=== PATIENT | female | born 1980 | race Caucasian/White ===

== ENCOUNTER → 2017-07-11 | Outpatient (CLI) | payer BC ==
[2017-07-11 12:38] LABS: ALANINE AMINOTRANSFERASE 23 U/L (9-52); ALBUMIN 4.2 g/dL (3.5-5.0); ALKALINE PHOSPHATASE 49 U/L (38-126); ANION GAP 10 (5-19); ASPARTATE AMINO TRANSFERASE 29 U/L (14-36); BILIRUBIN,DIRECT 0.4 mg/dL (0.0-0.4); BILIRUBIN,TOTAL 0.4 mg/dL (0.2-1.3); BLOOD UREA NITROGEN 10 mg/dL (7-20); CALCIUM 9.4 mg/dL (8.4-10.2); CARBON DIOXIDE 26 mmol/L (22-30); CHLORIDE 107 mmol/L (98-107); GLUCOSE 111 mg/dL (75-110); POTASSIUM 4.7 mmol/L (3.6-5.0); SODIUM 142.6 mmol/L (137-145); TOTAL PROTEIN 6.8 g/dL (6.3-8.2)
[2017-07-12 14:42] LABS: ANTINUCLEAR ANTIBODIES Positive (Negative); RNP AB <0.2 AI (0.0-0.9); SJOGREN'S ANTI-SS-B AB <0.2 AI (0.0-0.9); SJOGREN'S SS-A ANTIBODY <0.2 AI (0.0-0.9); SMITH AB ANA <0.2 AI (0.0-0.9)
[2017-07-12 15:02] LABS: DNA DOUBLE STRAND ANTIBODY ANA 11 IU/mL (0-9)
== END ==
LOC: OD 11:25
PROVIDERS: ATTEND Family Medicine
DX: G62.89 Other specified polyneuropathies (principal); E03.9 Hypothyroidism, unspecified; E10.9 Type 1 diabetes mellitus without complications
CPT/HCPCS: 36415; 80053; 82607; 82746; 84443; 86038

== ENCOUNTER 2017-09-08 21:24 | Emergency (ER) | payer BC ==
[2017-09-08 21:39] VITALS: BP 149/86
--- NOTE | 2017-09-08 21:47 | ER Document Report ---
HPI - HPI Pain Level: 5 - CONSTITUTIONAL Constitutional: DENIES: Fever, Chills - EENT EENT: DENIES: Sore Throat, Ear Pain, Eye problems - NEURO Neurology: DENIES: Headache, Weakness, Vision blurred, Dizzinesss / Vertigo - CARDIOVASCULAR Cardiovascular: DENIES: Chest pain - RESPIRATORY Respiratory: DENIES: Trouble Breathing, Coughing - GASTROINTESTINAL Gastrointestinal: DENIES: Abdominal Pain, Black / Bloody Stools - URINARY Urinary: DENIES: Dysuria, Urgency, Frequency - REPRODUCTIVE Reproductive: REPORTS: : - MUSCULOSKELETAL Musculoskeletal: REPORTS: Extremity pain - L knee, L arm / numbness hands Past Medical History - Social History Smoking Status: Unknown if Ever Smoked Family History: Reviewed & Not Pertinent Patient has suicidal ideation: No Patient has homicidal ideation: No Pulmonary Medical History: Reports: Hx Asthma - chilhood, Hx Bronchitis, Hx Tuberculosis Neurological Medical History: Reports: Hx Seizures - Last seizure 1 month ago Endocrine Medical History: Reports: Hx Diabetes Mellitus Type 1, Hx Hyperthyroidism Renal/ Medical History: Denies: Hx Peritoneal Dialysis Psychiatric Medical History: Denies: Hx Depression Traumatic Medical History: Reports: Hx Fractures Past Surgical History: Denies: Hx Pacemaker - Immunizations Hx Diphtheria, Pertussis, Tetanus Vaccination: No - 08/10/12 Vertical Provider Document - INFECTION CONTROL TRAVEL OUTSIDE OF THE [place] IN LAST 30 DAYS: No Course - Vital Signs Vital signs: Temp Pulse Resp BP Pulse Ox 98.5 F 90 16 149/86 H 98 09/08/17 21:37 09/08/17 21:37 09/08/17 21:37 09/08/17 21:37 09/08/17 21:37
--- NOTE | 2017-09-08 21:59 | ER Document Report ---
ED General - General Chief Complaint: Hand Pain Stated Complaint: LEFT KNEE PAIN Time Seen by Provider: 09/08/17 21:46 TRAVEL OUTSIDE OF THE [place]. IN LAST 30 DAYS: No - HPI Notes: 37-year-old female who presents with several complaints. Patient describes several months worth of pain and burning in her hands as well as her feet and legs and arms, radiates up into her shoulders. She also indicates some pain and swelling in her left knee over the last week or 2. When questioned at length, she indicates that she is been evaluated by multiple specialists for this including her primary care physician, a neurologist and a drop wirer. She is scheduled to have an EMG done in sometime the next week or 2. She denies any rashes, no weakness. No history of Lyme disease. Gradual onset. No other modifying factors, no other associated symptoms, no other provocative or palliative factors. When asked her why she presents to the emergency department tonight she states her is concerned because she is in so much pain all the time and wants her to get checked out to see if there is anything that we can do. She really has not had any acute or abrupt change in her underlying condition. - Related Data Allergies/Adverse Reactions: No Known Allergies Allergy (Verified 04/21/13 17:25) Past Medical History - Social History Smoking Status: Never Smoker Family History: Reviewed & Not Pertinent Patient has suicidal ideation: No Patient has homicidal ideation: No Pulmonary Medical History: Reports: Hx Asthma - chilhood, Hx Bronchitis, Hx Tuberculosis Neurological Medical History: Reports: Hx Seizures - Last seizure 1 month ago Endocrine Medical History: Reports: Hx Diabetes Mellitus Type 1, Hx Hyperthyroidism Renal/ Medical History: Denies: Hx Peritoneal Dialysis Psychiatric Medical History: Denies: Hx Depression Traumatic Medical History: Reports: Hx Fractures Past Surgical History: Denies: Hx Pacemaker - Immunizations Hx Diphtheria, Pertussis, Tetanus Vaccination: No - 08/10/12 Review of Systems - Review of Systems Notes: Review of systems as in the history of present illness, otherwise negative. Physical Exam - Vital signs Vitals: Temp Pulse Resp BP Pulse Ox 98.5 F 90 16 149/86 H 98 09/08/17 21:37 09/08/17 21:37 09/08/17 21:37 09/08/17 21:37 09/08/17 21:37 - Notes Notes: General: Well developed . HEENT: Normocephalic, atraumatic. Pupils equal round reactive to light. No JVD. Chest: No trauma. Respiratory: Good air exchange, normal excursion. Cardiac: Regular rhythm. No murmurs or gallops. Abdomen: Soft, benign. Nondistended. Nontender. Back: No asymmetry or gross abnormality. Motor: Grossly normal power and tone. Neurologic: Alert, nonfocal. Cranial nerves II-12 are intact. Sensation diminished in the upper extremities in a stocking glove distribution as well as in lower extremities. Vascular: Well perfused. Normal peripheral pulses. Skin: No petechiae or purpura. Extremities: No erythema, warmth or asymmetry, no edema. Course - Re-evaluation Re-evalutation: 09/08/17 22:09 37-year-old female with the after mentioned symptoms. After extensive discussion with her, she has had an extended workup by multiple specialists including a conference of rheumatologic workup. At this point, I do not see any ED testing is going to be helpful to her, no imaging that would be mandated in an emergent fashion. She really indicates that she does not wish to have any analgesics to "temporarily" fix things. She is more looking for a solution to her illness and a diagnosis. I have cautioned her that she must follow-up closely with her primary care physician and specialists, she will return if worsening. She is declined my offer for analgesics. - Vital Signs Vital signs: Temp Pulse Resp BP Pulse Ox 98.5 F 90 16 149/86 H 98 09/08/17 21:37 09/08/17 21:37 09/08/17 21:37 09/08/17 21:37 09/08/17 21:37 Discharge - Discharge Clinical Impression: Neuropathy Condition: Good Disposition: HOME, SELF-CARE Instructions: Neuropathy ([facility], [facility]) Additional Instructions: Contact your primary care doctor in the morning.
== END 2017-09-08 22:15 | disposition home or self-care (01) ==
LOC: ER 21:24
DX: E10.40 Type 1 diabetes mellitus with diabetic neuropathy, unspecified (principal); M25.562 Pain in left knee; M79.89 Other specified soft tissue disorders; M79.641 Pain in right hand; M79.642 Pain in left hand; M79.604 Pain in right leg; M79.605 Pain in left leg; M79.601 Pain in right arm; M79.602 Pain in left arm; J45.909 Unspecified asthma, uncomplicated
CPT/HCPCS: 99283

== ENCOUNTER 2017-09-20 21:48 | Emergency (ER) | payer BC ==
--- NOTE | 2017-09-20 23:31 | ER Document Report ---
HPI - HPI Patient complains to provider of: Left knee pain Onset: Other - 5 days Onset/Duration: Persistent Quality of pain: Achy Pain Level: 5 Context: Patient presents complaining of left knee pain for the past 5 days. Patient states she was walking, accidentally twisted her knee and felt a pop. Patient complains of pain with ambulation. Associated Symptoms: Other - Left knee pain Exacerbated by: Movement, Walking Relieved by: Denies Similar symptoms previously: No Recently seen / treated by doctor: Yes - ROS ROS below otherwise negative: Yes Systems Reviewed and Negative: Yes All other systems reviewed and negative - CONSTITUTIONAL Constitutional: DENIES: Fever, Chills - CARDIOVASCULAR Cardiovascular: DENIES: Chest pain - RESPIRATORY Respiratory: DENIES: Trouble Breathing, Coughing - MUSCULOSKELETAL Musculoskeletal: REPORTS: Extremity pain, Swelling - DERM Skin Color: Normal Skin Problems: None Past Medical History - General Information source: Patient - Social History Smoking Status: Never Smoker Chew tobacco use (# tins/day): No Frequency of alcohol use: Rare Drug Abuse: None 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 Family History: Reviewed & Not Pertinent Patient has suicidal ideation: No Patient has homicidal ideation: No Pulmonary Medical History: Reports: Hx Asthma - chilhood, Hx Bronchitis, Hx Tuberculosis Neurological Medical History: Reports: Hx Seizures - Last seizure 1 month ago Endocrine Medical History: Reports: Hx Diabetes Mellitus Type 1, Hx Hypothyroidism Renal/ Medical History: Denies: Hx Peritoneal Dialysis Psychiatric Medical History: Denies: Hx Depression Traumatic Medical History: Reports: Hx Fractures Surgical Hx: Negative Past Surgical History: Denies: Hx Pacemaker - Immunizations Hx Diphtheria, Pertussis, Tetanus Vaccination: No - 08/10/12 Vertical Provider Document - CONSTITUTIONAL Agree With Documented VS: Yes - 98.5, 73, 16, 143/80, 100% Exam Limitations: No Limitations General Appearance: WD/WN, No Apparent Distress - INFECTION CONTROL TRAVEL OUTSIDE OF THE [place] IN LAST 30 DAYS: No - HEENT HEENT: Atraumatic, Normocephalic - NECK Neck: Normal Inspection - RESPIRATORY Respiratory: No Respiratory Distress - CARDIOVASCULAR Pulses: Normal: Posterior tibial - MUSCULOSKELETAL/EXTREMETIES Musculoskeletal/Extremeties: MAEW, Tender - Left knee joint tenderness with effusion, normal skin color and temperature overlying joint. Tenderness increases with flexion.. negative: Eccymosis Notes: No laxity with varus or valgus maneuvers - NEURO Level of Consciousness: Awake, Alert, Appropriate Motor/Sensory: No Motor Deficit - DERM Integumentary: Warm, Dry, No Rash Course - Re-evaluation Re-evalutation: 09/20/17 23:29 Patient was recently evaluated in the emergency department on 09/08/2017 with the listed chief complaint of knee pain. When provider asked patient about her previous ER visit, patient denied having any knee pain at that visit stating that she was there for hand pain at that visit. Provider asked patient if she had any history of knee pain previously, patient states she has not had any previous problems with pain involving her left knee. Review of chart from 2017 demonstrates that patient had had inner minute left knee pain for the past 1 or 2 weeks at that time. - Diagnostic Test Radiology reviewed: Pending, Image reviewed Procedures - Immobilization Left Knee Pre-Proc Neuro Vasc Exam: Normal Immobilizer type: Knee immobilizer Performed by: RN Post-Proc Neuro Vasc Exam: Normal Alignment checked and good: Yes Discharge - Discharge Clinical Impression: Left knee sprain Qualifiers: Encounter type: initial encounter Involved ligament of knee: unspecified ligament Qualified Code(s): S83.92XA - Sprain of unspecified site of left knee, initial encounter Condition: Stable Disposition: HOME, SELF-CARE Instructions: Use of Crutches ([facility]), Ice & Elevation ([facility]) Additional Instructions: Return immediately for any new or worsening symptoms Followup with your primary care provider, call tomorrow to make a followup appointment Take your meloxicam at home as prescribed to help with her symptoms. Follow up with custom framing specialist for further evaluation, call Saturday for an appointment Weightbearing as tolerated Prescriptions: Capsaicin 1 applic TP QID PRN #60 cream..g. PRN Reason: Referrals: EFREN SMALLWOOD MD [Primary Care Provider] - Follow up as needed [facility] [Provider Group] - 09/23/17
[2017-09-21] MEDS ORDERED: HYDROCODONE/ACETAMINOPHEN 5-325 MG (6 TAB/ER DISP) PO PRN (00:06)
--- NOTE | 2017-09-21 00:34 | RADIOLOGY REPORT (SQ) ---
EXAM DESCRIPTION: KNEE LEFT 4 VIEW CLINICAL HISTORY: 37 years Female, left knee pain COMPARISON: None. Findings: Bones, joints, and soft tissues of the KNEE LEFT 4 VIEW appear intact. IMPRESSION: No acute findings.
== END 2017-09-21 01:05 | disposition home or self-care (01) ==
LOC: ER 21:48
DX: S83.92XA Sprain of unspecified site of left knee, initial encounter (principal); X50.0XXA Overexertion from strenuous movement or load, initial encounter; E10.9 Type 1 diabetes mellitus without complications; E03.9 Hypothyroidism, unspecified
CPT/HCPCS: 99283; 73562; L1830

== ENCOUNTER 2018-06-13 18:27 | Emergency (ER) | payer BC ==
--- NOTE | 2018-06-13 20:26 | ER Document Report ---
ED Medical Screen (RME) - General Chief Complaint: Vaginal Pain Stated Complaint: PELVIC PAIN Time Seen by Provider: 06/13/18 20:24 Mode of Arrival: Ambulatory Information source: Patient Notes: Patient presents with concerns for bladder prolapse. Patient states that something is been coming out of her vaginal canal. She does have a picture of it which is a little blurry. She states that since her giving in 2013 she has had pain with sex and constant on a backache. She did see someone from [facility] but feels that the problem was never fully addressed and has had continued episodic discomfort since then. Patient does states she is been coughing a lot and noticed the prolapse yesterday. TRAVEL OUTSIDE OF THE [place] IN LAST 30 DAYS: No - Related Data Allergies/Adverse Reactions: No Known Allergies Allergy (Verified 04/21/13 17:25) Past Medical History Pulmonary Medical History: Reports: Hx Asthma - chilhood, Hx Bronchitis, Hx Tuberculosis Neurological Medical History: Reports: Hx Seizures - Last seizure 1 month ago Endocrine Medical History: Reports: Hx Diabetes Mellitus Type 1, Hx Hyperthyroidism, Hx Hypothyroidism Renal/ Medical History: Denies: Hx Peritoneal Dialysis Psychiatric Medical History: Denies: Hx Depression Traumatic Medical History: Reports: Hx Fractures Past Surgical History: Denies: Hx Pacemaker - Immunizations Hx Diphtheria, Pertussis, Tetanus Vaccination: No - 08/10/12 Physical Exam - Vital signs Vitals: Temp Pulse Resp BP Pulse Ox 98.2 F 67 16 135/78 H 100 06/13/18 19:05 06/13/18 19:05 06/13/18 19:05 06/13/18 19:05 06/13/18 19:05 Course - Vital Signs Vital signs: Temp Pulse Resp BP Pulse Ox 98.2 F 67 16 135/78 H 100 06/13/18 19:05 06/13/18 19:05 06/13/18 19:05 06/13/18 19:05 06/13/18 19:05 Doctor's Discharge - Discharge Referrals: EFREN SMALLWOOD MD [Primary Care Provider] - Follow up as needed
[2018-06-13 21:24] LABS: APPEARANCE,URINE CLEAR; BILIRUBIN,URINE NEGATIVE (NEGATIVE); COLOR,URINE YELLOW; GLUCOSE, URINE >=500 mg/dL (NEGATIVE); KETONES,URINE NEGATIVE (NEGATIVE); LEUKOCYTE ESTERASE,URINE NEGATIVE (NEGATIVE); NITRITE,URINE NEGATIVE (NEGATIVE); PROTEIN,URINE NEGATIVE (NEGATIVE); URINE SPECIFIC GRAVITY 1.014; UROBILINOGEN,URINE NEGATIVE mg/dL (<2.0)
--- NOTE | 2018-06-13 23:22 | ER Document Report ---
ED General - General Chief Complaint: Vaginal Pain Stated Complaint: PELVIC PAIN Time Seen by Provider: 06/13/18 20:24 Mode of Arrival: Ambulatory Notes: Patient presents with concerns for bladder prolapse. Patient states that something is been coming out of her vaginal canal. She does have a picture of it which is a little blurry. She states that since her giving in 2013 she has had pain with sex and constant on a backache. She did see someone from [facility] but feels that the problem was never fully addressed and has had continued episodic discomfort since then. Patient does states she is been coughing a lot and noticed the prolapse yesterday. Patient denies dysuria, hematuria, vaginal discharge. She states that she has not been sexually active in over 1 year. She denies concern for STD. She does report to vaginal births with the last one in 2013. Patient denies fever, chills, nausea, vomiting, chest pain, abdominal pain. TRAVEL OUTSIDE OF THE [place] IN LAST 30 DAYS: No - HPI Onset: Other Onset/Duration: Intermittent Quality of pain: Pressure Severity: Mild Associated symptoms: denies: Chest pain, Diarrhea, Fever, Leg swelling, Nausea, Vomiting, Shortness of breath Exacerbated by: Coughing Relieved by: Denies Similar symptoms previously: Yes Recently seen / treated by doctor: No - Related Data Allergies/Adverse Reactions: No Known Allergies Allergy (Verified 04/21/13 17:25) Past Medical History - General Information source: Patient Last Menstrual Period: Jan 2018 - Social History Smoking Status: Never Smoker Frequency of alcohol use: Rare Drug Abuse: None Lives with: Family Family History: Reviewed & Not Pertinent Patient has suicidal ideation: No Patient has homicidal ideation: No Pulmonary Medical History: Reports: Hx Asthma - chilhood, Hx Bronchitis, Hx Tuberculosis Neurological Medical History: Reports: Hx Seizures - Last seizure 1 month ago Endocrine Medical History: Reports: Hx Diabetes Mellitus Type 1, Hx Hyperthyroidism, Hx Hypothyroidism Renal/ Medical History: Denies: Hx Peritoneal Dialysis Psychiatric Medical History: Denies: Hx Depression Traumatic Medical History: Reports: Hx Fractures Past Surgical History: Denies: Hx Pacemaker - Immunizations Hx Diphtheria, Pertussis, Tetanus Vaccination: No - 08/10/12 Review of Systems - Review of Systems Notes: REVIEW OF SYSTEMS: CONSTITUTIONAL : Denies fever, chills, or sweats. Denies recent illness. Denies weight loss, recent hospitalizations. EENT: Denies visual changes, eye pain. Denies sore throat, oral lesions, difficulty swallowing. CARDIOVASCULAR: Denies chest pain. Denies palpitations. Denies lower extremity edema. RESPIRATORY: Denies cough. Denies shortness of breath, wheezing. GASTROINTESTINAL: Denies abdominal pain or distention. Denies nausea, vomiting, or diarrhea. Denies blood in vomitus, stools, or per rectum. Denies black, tarry stools. Denies constipation. GENITOURINARY: Denies difficulty urinating, painful urination, frequency, blood in urine, or vaginal discharge. MUSCULOSKELETAL: Denies back or neck pain or stiffness. Denies joint pain or swelling. SKIN: Denies rash, lesions or sores. HEMATOLOGIC : Denies easy bruising or bleeding. LYMPHATIC: Denies swollen glands. NEUROLOGICAL: Denies confusion or altered mental status. Denies loss of consciousness. Denies dizziness or lightheadedness. Denies headache. Denies weakness or paralysis. Denies problems difficulty with ambulation, slurred speech. Denies sensory loss, numbness, or tingling. Denies seizures. PSYCHIATRIC: Denies anxiety or stress. Denies depression, suicidal ideation, or homicidal ideation. Denies visual or auditory hallucinations. Physical Exam - Vital signs Vitals: Temp Pulse Resp BP Pulse Ox 98.2 F 67 16 135/78 H 100 06/13/18 19:05 06/13/18 19:05 06/13/18 19:05 06/13/18 19:05 06/13/18 19:05 - Notes Notes: PHYSICAL EXAMINATION: GENERAL: Well-appearing, well-nourished and in no acute distress. HEAD: Atraumatic, normocephalic. EYES: Pupils equal round and reactive to light, extraocular movements intact, conjunctiva are normal. ENT: Nares patent, oropharynx clear without exudates. Moist mucous membranes. NECK: Normal range of motion, supple without lymphadenopathy LUNGS: Breath sounds clear to auscultation bilaterally and equal. No wheezes rales or rhonchi. HEART: Regular rate and rhythm without murmurs ABDOMEN: Soft, nontender, nondistended abdomen. No guarding, no rebound. No masses appreciated. Female : Pelvic exam; External genitalia unremarkable. Speculum exam with no discharge. Vaginal wall unremarkable. Os closed. No cervical motion tenderness. No adnexal tenderness or masses appreciated. Musculoskeletal: Normal range of motion, no pitting or edema. No cyanosis. NEUROLOGICAL: Cranial nerves grossly intact. Normal speech, normal gait. Normal sensory, motor exams PSYCH: Normal mood, normal affect. SKIN: Warm, Dry, normal turgor, no rashes or lesions noted. Course - Re-evaluation Re-evalutation: 06/14/18 00:23 Laboratory 06/13/18 20:32 Urine Color YELLOW Urine Appearance CLEAR Urine pH 7.0 Ur Specific [place] 1.014 Urine Protein NEGATIVE Urine Glucose (UA) >=500 H Urine Ketones NEGATIVE Urine Blood NEGATIVE Urine Nitrite NEGATIVE Urine Bilirubin NEGATIVE Urine Urobilinogen NEGATIVE Ur Leukocyte Esterase NEGATIVE Urine WBC (Auto) 0 Urine RBC (Auto) 1 Urine Bacteria (Auto) TRACE Squamous Epi Cells Auto 1 Urine Mucus (Auto) RARE Urine Ascorbic Acid NEGATIVE Temp Pulse Resp BP Pulse Ox 98.2 F 67 16 135/78 H 100 06/13/18 19:05 06/13/18 19:05 06/13/18 19:05 06/13/18 19:05 06/13/18 19:05 37-year-old female presents with concern for bladder prolapse. She reports after significant coughing she noticed something hanging out of her vagina yesterday. Patient denies abdominal pain, vaginal discharge, vaginal itching, dysuria, hematuria. She does admit to incontinence after coughing or laughing. Patient states that she has had this problem ever since delivering her second child in 2013. She was seen by her ELECTRICAL FITTER a few years ago but she states that she never had follow-up. Urinalysis is without evidence of urinary tract infection. Patient declining pain medication. She states that "I have been living with this for years". I did discuss that she would need to be seen by ELECTRICAL FITTER for further management. Patient was evaluated and treated as appropriate for the patient's presenting symptoms and complaint, with consideration of any critical or life threatening conditions that may be associated with their obtained history and exam as noted above. All results were discussed with patient . Patient provided the opportunity to ask questions, and express concerns. Patient was educated on treatments based on their presumed diagnosis as noted above. At this time we will discharge the patient with return precautions and follow-up recommendations. Verbal discharge instructions given a the bedside. Medication warnings reviewed. Patient is in agreement with this plan and has verbalized understanding of return precautions. After careful consideration I feel that that patient can be safely discharged from the emergency department, they were advised to followup with a primary care physician in 2-3 days. Dictation on this chart was performed using voice recognition software and may result in unintended grammatical, spelling, syntax or errors. - Vital Signs Vital signs: Temp Pulse Resp BP Pulse Ox 98.2 F 67 16 135/78 H 100 06/13/18 19:05 06/13/18 19:05 06/13/18 19:05 06/13/18 19:05 06/13/18 19:05 - Laboratory Laboratory results interpreted by me: 06/13/18 20:32 Urine Glucose (UA) >=500 H Discharge - Discharge Clinical Impression: Uterine prolapse, Elevated blood pressure reading, Suprapubic pressure, Bladder prolapse Condition: Good Disposition: HOME, SELF-CARE Instructions: Bladder Prolapse ([facility]), Pelvic Pain ([facility]) Referrals: EFREN SMALLWOOD MD [[facility]] - Follow up as needed RIVERA SANTOS MD [ACTIVE STAFF] - Follow up in 3-5 days
[2018-06-14 00:31] VITALS: BP 116/68
== END 2018-06-14 00:31 | disposition home or self-care (01) ==
LOC: ER 18:27
DX: N81.4 Uterovaginal prolapse, unspecified (principal); R10.2 Pelvic and perineal pain; R03.0 Elevated blood-pressure reading, without diagnosis of hypertension; E03.9 Hypothyroidism, unspecified; E10.9 Type 1 diabetes mellitus without complications
CPT/HCPCS: 81001; 99283

== ENCOUNTER → 2018-06-23 | Outpatient (CLI) | payer BC ==
[2018-06-23 13:09] LABS: ANION GAP 7 (5-19); BLOOD UREA NITROGEN 15 mg/dL (7-20); CARBON DIOXIDE 28 mmol/L (22-30); CHLORIDE 104 mmol/L (98-107); GLUCOSE 228 mg/dL (75-110); POTASSIUM 4.6 mmol/L (3.6-5.0)
[2018-06-24 12:38] LABS: CREATININE URINE 136.3 mg/dL (Not Estab.); MICROALBUMIN URINE <3.0 ug/mL (Not Estab.)
== END ==
LOC: OD 11:15
PROVIDERS: ATTEND Family Medicine
DX: E10.9 Type 1 diabetes mellitus without complications (principal)
CPT/HCPCS: 36415; 80048; 82043; 82570; 83036

== ENCOUNTER 2018-08-09 00:58 | Emergency (ER) | payer OTHER, BC ==
[2018-08-09] MEDS ORDERED: DEXTROSE 50%-WATER 25 GM/50 ML DISP.SYRIN IV ONE ×2 (01:08→01:48)
[2018-08-09] MEDS ORDERED: NORMAL SALINE 1000 ML 1,000 ML IV ONE (01:50)
[2018-08-09] MEDS ORDERED: MORPHINE SULFATE 10 MG/ML INJ IV ONE (01:50)
[2018-08-09 01:58] LABS: ABSOLUTE EOSINOPHILS # (AUTO) 0.1 10^3/uL (0.0-0.6); ABSOLUTE LYMPHOCYTES (AUTO) 1.4 10^3/uL (0.5-4.7); ABSOLUTE MONOCYTES (AUTO) 0.5 10^3/uL (0.1-1.4); ABSOLUTE NEUT (AUTO) 5.4 10^3/uL (1.7-8.2); BASOPHILS % (AUTO) 0.4 % (0-2); EOSINOPHILS % (AUTO) 1.5 % (0-6); HEMATOCRIT 36.1 % (36.0-47.0); HEMOGLOBIN 12.6 g/dL (12.0-15.5); LYMPHOCYTES % (AUTO) 18.6 % (13-45); MEAN CORPUSCULAR HEMOGLOBIN 31.8 pg (27.0-33.4); MEAN CORPUSCULAR VOLUME 91 fl (80-97); MONOCYTES % (AUTO) 6.2 % (3-13); PLATELET COUNT 250 10^3/uL (150-450); RED BLOOD COUNT 3.97 10^6/uL (3.72-5.28); RED CELL DISTRIBUTION WIDTH 13.5 % (11.5-14.0); SEGMENTED NEUTROPHILS % (AUTO) 73.3 % (42-78); TOTAL CELLS COUNTED % (AUTO) 100 %; WHITE BLOOD COUNT 7.4 10^3/uL (4.0-10.5)
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
[2018-08-09 03:19] LABS: ALANINE AMINOTRANSFERASE 20 U/L (9-52); ALBUMIN 4.3 g/dL (3.5-5.0); ALKALINE PHOSPHATASE 80 U/L (38-126); ANION GAP 13 (5-19); ASPARTATE AMINO TRANSFERASE 27 U/L (14-36); BILIRUBIN,DIRECT 0.3 mg/dL (0.0-0.4); BILIRUBIN,TOTAL 0.5 mg/dL (0.2-1.3); BLOOD UREA NITROGEN 11 mg/dL (7-20); CALCIUM 8.6 mg/dL (8.4-10.2); CARBON DIOXIDE 20 mmol/L (22-30); CHLORIDE 107 mmol/L (98-107); GLUCOSE 198 mg/dL (75-110); POTASSIUM 3.3 mmol/L (3.6-5.0); SODIUM 139.6 mmol/L (137-145); TOTAL PROTEIN 6.6 g/dL (6.3-8.2)
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
[2018-08-09 05:50] VITALS: BP 109/64
== END 2018-08-09 05:59 | disposition home or self-care (01) ==
LOC: ER 00:58
DX: E10.649 Type 1 diabetes mellitus with hypoglycemia without coma (principal); R55 Syncope and collapse; S60.012A Contusion of left thumb without damage to nail, initial encounter; M54.6 Pain in thoracic spine; R07.89 Other chest pain; M79.645 Pain in left finger(s); M25.532 Pain in left wrist; R10.2 Pelvic and perineal pain; V47.5XXA Car driver injured in collision with fixed or stationary object in traffic accident, initial encounter; Y93.89 Activity, other specified; Y99.0 Civilian activity done for income or pay; L53.9 Erythematous condition, unspecified
CPT/HCPCS: 99284; 96361; 96374; 96375; 36415; 82962; 85025; 80053; 73130; 73110; 71260; 29125; J3490; J2270; J7030

== ENCOUNTER → 2018-08-27 | Outpatient (CLI) | payer BC ==
--- NOTE | 2018-08-27 15:48 | RADIOLOGY REPORT (SQ) ---
EXAM DESCRIPTION: CHEST PA/LATERAL COMPLETED DATE/TIME: 08/27/2018 3:28 pm REASON FOR STUDY: PLEURODYNIA COMPARISON: 02/19/2015 EXAM PARAMETERS: NUMBER OF VIEWS: two views TECHNIQUE: Digital Frontal and Lateral radiographic views of the chest acquired. RADIATION DOSE: NA LIMITATIONS: none FINDINGS: LUNGS AND PLEURA: No opacities, masses or pneumothorax. No pleural effusion. MEDIASTINUM AND HILAR STRUCTURES: No masses or contour abnormalities. HEART AND VASCULAR STRUCTURES: Heart normal size. No evidence for failure. BONES: Unchanged mild physiologic wedging at the thoracolumbar junction. No acute bony abnormality. HARDWARE: None in the chest. OTHER: No other significant finding. IMPRESSION: NO SIGNIFICANT RADIOGRAPHIC FINDING IN THE CHEST. TECHNICAL DOCUMENTATION: JOB ID: [id number] [employer]- All Rights Reserved Reading location - IP/workstation name: [email or web address]
== END ==
LOC: OD 15:14
PROVIDERS: ATTEND Family Medicine
DX: R07.81 Pleurodynia (principal)
CPT/HCPCS: 71046

== ENCOUNTER 2019-01-15 08:20 | Day surgery (SDC) | payer BC, OTHER ==
[2019-01-13 11:51] LABS: HEMATOCRIT 35.7 % (36.0-47.0); HEMOGLOBIN 11.9 g/dL (12.0-15.5); MEAN CORPUSCULAR HEMOGLOBIN 29.2 pg (27.0-33.4); MEAN CORPUSCULAR HGB CONC 33.4 g/dL (32.0-36.0); MEAN CORPUSCULAR VOLUME 87 fl (80-97); PLATELET COUNT 226 10^3/uL (150-450); RED BLOOD COUNT 4.09 10^6/uL (3.72-5.28); RED CELL DISTRIBUTION WIDTH 13.5 % (11.5-14.0); WHITE BLOOD COUNT 5.2 10^3/uL (4.0-10.5)
[2019-01-13 11:56] LABS: APPEARANCE,URINE CLEAR; BILIRUBIN,URINE NEGATIVE (NEGATIVE); COLOR,URINE YELLOW; GLUCOSE, URINE NEGATIVE (NEGATIVE); KETONES,URINE NEGATIVE (NEGATIVE); LEUKOCYTE ESTERASE,URINE NEGATIVE (NEGATIVE); NITRITE,URINE NEGATIVE (NEGATIVE); PROTEIN,URINE NEGATIVE (NEGATIVE); URINE SPECIFIC GRAVITY 1.013; UROBILINOGEN,URINE NEGATIVE mg/dL (<2.0)
[~2019-01-15 08:20] MED LIST: LACTATED RINGERS 1000 ML IV PRN; LIDOCAINE 0.5% INJ-PF (5 MG/ML) 50 ML SDV SUBCUT PRN
[2019-01-15] MEDS ORDERED: LIDOCAINE 1%/EPINEPHRINE INJ 20 ML VIAL ONE (08:47)
[2019-01-15] MEDS ORDERED: INSULIN REG, HUMAN 100 UNIT/ML 3 ML VIAL (PYX) ONE (10:13)
[2019-01-15] MEDS ORDERED: DEXAMETHASONE SOD PHOSPHATE INJ 4 MG/1 ML VIAL ONE (10:14)
[2019-01-15] MEDS ORDERED: MIDAZOLAM 2 MG/2 ML INJ ONE (10:14)
[2019-01-15] MEDS ORDERED: FENTANYL CITRATE INJ/PF 100 MCG/2 ML AMPUL ONE (10:14)
[2019-01-15] MEDS ORDERED: ONDANSETRON HCL INJ/PF 4 MG/2 ML SDV ONE (10:14)
[2019-01-15] MEDS ORDERED: PROPOFOL INJ 200 MG/20 ML VIAL IV ONE (10:15)
[2019-01-15] MEDS ORDERED: SUGAMMADEX SODIUM 200 MG/2 ML SDV IV ONE (10:15)
[2019-01-15] MEDS ORDERED: HYDROMORPHONE HCL INJ/PF 2 MG/ML AMPULE ONE (10:15)
[2019-01-15] MEDS ORDERED: INSULIN REG, HUMAN 100 UNIT/ML 3 ML VIAL (PYX) SUBCUT PRN (10:20)
[2019-01-15] MEDS ORDERED: FENTANYL CITRATE INJ/PF 100 MCG/2 ML AMPUL IV PRN ×3 (10:49)
[2019-01-15] MEDS ORDERED: DIPHENHYDRAMINE HCL 50 MG/ML VIAL IV PRN (10:49)
[2019-01-15] MEDS ORDERED: MEPERIDINE HCL/PF INJ 25 MG/1 ML DISP.SYRIN IV PRN (10:49)
[2019-01-15] MEDS ORDERED: PROMETHAZINE HCL INJ 25 MG/1 ML VIAL IV PRN ×2 (10:49)
--- NOTE | 2019-01-15 11:59 | Operative Report ---
Operative Report DATE OF SURGERY: 01/15/19 PREOPERATIVE DIAGNOSIS: Stress urinary incontinence POSTOPERATIVE DIAGNOSIS: Same OPERATION: Transvaginal tape SURGEON: RIVERA SANTOS 1ST MULTIPLE KNIFE EDGE TRIMMER OPERATOR: SAYRA LUNA ANESTHESIA: GA COMPLICATIONS: None ESTIMATED BLOOD LOSS: 50 cc INTRAOPERATIVE FINDINGS: Cystoscopy showed no bladder intrusion or intra-injury PROCEDURE: Patient was taken the operating room prepared and draped in normal sterile fashion in dorsal dorsolithotomy position in [facility]. Oley catheter was placed to gravity. The vaginal mucosa was grasped with 2 Allis clamps in the midline approximately 1 cm below the urethra this was injected with approximately 5 cc of Bupivicaine with epi. Mucosa was scored in the midline and dissected away from the urethra using blunt and sharp dissection using Metzenbaum scissors. When the posterior aspect of the symphysis pubis could be palpated and blade was used to make 2 puncture appiah on either side of the bladder on the patient's mons. We then guided the Suyapa sling applicators following the pubic symphysis bone and through the canal until the applicator came through the vaginal mucosa in the proper aspect and bilaterally endoscopy was then performed to ensure that the TVT needles had not penetrated the bladder and the bladder was found to be without injury. The TVT tape was then hooked on both applicators and they were brought through the incision under slight tension using surgical sent scissors as a guide to prevent too much tension on the urethra. The tape was then trimmed at the skin was placed over the incision site defect in the vaginal mucosa was closed with 0 Vicryl runner. Patient tolerated procedure well sponge lap and needle counts were correct x2 was taken to recovery in stable condition.
[2019-01-15] MEDS ORDERED: OXYCODONE-ACETAMINOPHEN 5-325 MG TABLET ONE (12:18)
[2019-01-15] MEDS ORDERED: ROCURONIUM BROMIDE INJ 50 MG/5 ML VIAL IV ONE (14:48)
[2019-01-15] MEDS ORDERED: SUCCINYLCHOLINE CHLORIDE INJ 200 MG/10 ML VIAL ONE (14:48)
[2019-01-15 18:30] VITALS: BP 116/72
== END 2019-01-15 14:25 | disposition home or self-care (01) ==
LOC: OROUT 08:20
PROVIDERS: ATTEND Obstetrics & Gynecology
DX: N39.3 Stress incontinence (female) (male) (principal); N81.4 Uterovaginal prolapse, unspecified; E03.9 Hypothyroidism, unspecified; E10.9 Type 1 diabetes mellitus without complications
CPT/HCPCS: 36415; 82962; 85027; 81025; 81001; 83036; 00840; 57288; C1781; J2250; J3490 ×2; J1100; J3010; J1170; J1815; J0330; J2405; J2704; 840

== ENCOUNTER → 2019-05-06 | Outpatient (CLI) | payer BC ==
[2019-05-06 08:32] LABS: ANION GAP 12 (5-19); BLOOD UREA NITROGEN 12 mg/dL (7-20); CALCIUM 8.8 mg/dL (8.4-10.2); CARBON DIOXIDE 27 mmol/L (22-30); CHLORIDE 102 mmol/L (98-107); GLUCOSE 137 mg/dL (75-110); POTASSIUM 3.8 mmol/L (3.6-5.0)
== END ==
LOC: OD 07:04
PROVIDERS: ATTEND Family Medicine
DX: R60.0 Localized edema (principal)
CPT/HCPCS: 36415; 80048

== ENCOUNTER → 2019-07-20 | Outpatient (CLI) | payer BC ==
[2019-07-20 11:42] LABS: ALBUMIN 4.2 g/dL (3.5-5.0); ALKALINE PHOSPHATASE 74 U/L (38-126); ANION GAP 10 (5-19); ASPARTATE AMINO TRANSFERASE 26 U/L (14-36); BILIRUBIN,DIRECT 0.4 mg/dL (0.0-0.4); BILIRUBIN,TOTAL 0.5 mg/dL (0.2-1.3); BLOOD UREA NITROGEN 15 mg/dL (7-20); CALCIUM 8.9 mg/dL (8.4-10.2); CARBON DIOXIDE 26 mmol/L (22-30); CHLORIDE 105 mmol/L (98-107); CHOLESTEROL 180.46 mg/dL (0-200); GLUCOSE 183 mg/dL (75-110); POTASSIUM 3.6 mmol/L (3.6-5.0); TOTAL PROTEIN 7.4 g/dL (6.3-8.2); TRIGLYCERIDES 138 mg/dL (<150)
[2019-07-20 11:54] LABS: DIRECT LDL 120 mg/dL (<100)
[2019-07-21 15:36] LABS: CREATININE URINE 173.2 mg/dL (Not Estab.); MICROALBUMIN URINE 10.7 ug/mL (Not Estab.)
== END ==
LOC: OD 10:08
PROVIDERS: ATTEND Family Medicine
DX: E10.9 Type 1 diabetes mellitus without complications (principal); R60.0 Localized edema
CPT/HCPCS: 36415; 80053; 80061; 82043; 82570; 83036

== ENCOUNTER 2019-09-03 15:54 | Emergency (ER) | payer BC ==
--- NOTE | 2019-09-03 16:08 | ER Document Report ---
HPI - HPI Notes: The patient was evaluated during the global Covid 19 pandemic and that diagnosis was suspected/considered upon their initial presentation. Their evaluation, treatment and testing was consistent with current guidelines for patients who present with complaints or symptoms that may be related to Covid 19. Patient reports that she was sick with upper respiratory symptoms and GI symptoms 3 weeks ago. Full physical exam could not be performed due to Covid 19 isolation protocols. Constitutional: Nontoxic appearance, no acute distress Eyes: Nonicteric, extraocular movements intact, sclera clear Cardiovascular: No JVD, regular rate and rhythm Respiratory: Nonlabored breathing, no use of accessory muscles, no tachypnea, clear to auscultation Gastrointestinal: Abdomen not distended Musculoskeletal: Moves all extremities well, normal gait Skin: Normal color Neuro: Awake alert oriented x3, normal speech Psych: Normal mood and affect Patient presents with upper respiratory symptoms worrisome for possible Covid 19. Patient does not have emergency worrying symptoms such as difficulty breathing, shortness of breath, chest pain, pressure, confusion or cyanosis. Patient appears suitable for discharge as they are not of an advanced age, do not have any chronic medical conditions that are uncontrolled such as diabetes, CAD, immune deficiency, chronic lung disease or chronic kidney disease. Patient does have diabetes but states it is well controlled. Patient's vital signs are stable and patient is nontoxic in appearance. Good return precautions have been discussed with the patient and/or family members. Patient verbalized understanding and is agreeable with discharge plan of care at this time. - REPRODUCTIVE Reproductive: DENIES: : Past Medical History - Social History Smoking Status: Unknown if Ever Smoked Family History: Reviewed & Not Pertinent - Past Medical History Cardiac Medical History: Denies: Hx Coronary Artery Disease, Hx Heart Attack, Hx Hypertension Pulmonary Medical History: Reports: Hx Asthma - chilhood, Hx Bronchitis, Hx Tuberculosis Denies: Hx COPD, Hx Pneumonia Neurological Medical History: Reports: Hx Seizures - ONLY IF HYPOGLYCEMIC. Denies: Hx Cerebrovascular Accident Endocrine Medical History: Reports: Hx Diabetes Mellitus Type 1, Hx Hyperthyroidism, Hx Hypothyroidism Renal/ Medical History: Denies: Hx Peritoneal Dialysis Psychiatric Medical History: Denies: Hx Depression Traumatic Medical History: Reports: Hx Fractures Past Surgical History: Denies: Hx Pacemaker - Immunizations Hx Diphtheria, Pertussis, Tetanus Vaccination: No - 08/10/12 Vertical Provider Document - INFECTION CONTROL TRAVEL OUTSIDE OF THE [place] IN LAST 30 DAYS: No Course - Re-evaluation Re-evalutation: 09/03/19 17:01 Heart rate 73. Blood pressure 116/60. SPO2 97% on room air. Temperature 97.5. Respiratory rate 16. Discharge - Discharge Clinical Impression: Upper respiratory infection, viral, Covid 19 evaluation Condition: Stable Disposition: HOME, SELF-CARE Additional Instructions: Patient was provided with discharge information including: As a person under investigation for Covid 19, the [facility] of Health and Human Services, division of public health advises you to adhere to the following guidance until your test results are reported to you. If your test result is positive, you will receive additional information from your provider in your local health department at that time. Remain at home until you are cleared by the health provider or public health authorities. Keep a log of visitors to your home, notify any visitors to your home with your isolation status. If you plan to move to a new address or leave the [facility], notify the local health department in your [facility]. Call your doctor or seek care if you have an urgent medical need. Before seeking medical care, call ahead to get instructions from the provider before arriving at the medical office clinic or hospital. Notify them that you are being tested for the virus that causes Covid 19 so that arrangements can be made as necessary to prevent transmission to others in the healthcare setting. Next, notify the [facility] department and your County. If you medical emergency arises and you need to call 911, inform the first responders that you are being tested for the virus that causes Covid 19. Next, notify the [facility] department and your County Use the albuterol inhaler 2 puffs every 4 hours as needed for shortness of breath or cough. Take the Tessalon Perles as prescribed to help with cough Prescriptions: Benzonatate [Tessalon Perles 100 mg Capsule] 100 mg PO Q8HP PRN #40 capsule PRN Reason: Albuterol Sulfate [Proair HFA Inhalation Aerosol 8.5 gm MDI] 2 puff IH Q4H PRN #1 mdi PRN Reason: Referrals: JORDY SNYDER MD [Primary Care Provider] - Follow up as needed
[2019-09-03 17:35] LABS: A TYPE INFLUENZA AG NEGATIVE (NEGATIVE); B INFLUENZA AG NEGATIVE (NEGATIVE)
== END 2019-09-03 17:00 | disposition home or self-care (01) ==
LOC: EDRDC 15:54
DX: J06.9 Acute upper respiratory infection, unspecified (principal); J45.909 Unspecified asthma, uncomplicated; Z20.828 Contact with and (suspected) exposure to other viral communicable diseases
CPT/HCPCS: 87070; 87077; 87635; 87804; 87880; 99211

== ENCOUNTER → 2019-10-06 | Outpatient (CLI) | payer BC | LOC: OD 09:14 | PROVIDERS: ATTEND Internal Medicine | DX: E03.9 Hypothyroidism, unspecified (principal) | CPT/HCPCS: 36415; 84443 ==

== ENCOUNTER 2019-10-15 08:10 | Emergency (ER) | payer BC ==
--- NOTE | 2019-10-15 08:58 | ER Document Report ---
ED Dizziness/Weakness - General Chief Complaint: Syncope Stated Complaint: SYNCOPE Time Seen by Provider: 10/15/19 08:40 Primary Care Provider: CLARI RAWLS MD [ACTIVE STAFF] - Follow up as needed Mode of Arrival: Medic Information source: Patient Notes: 39-year-old female past medical history significant for diabetes, hypothyroidism presents to the emergency room complaining of bilateral upper and lower extremities feeling heavy. States she was at work around 430 this morning when she started feeling tingling throughout her body. States she feels like her arms and legs are heavy. States did not take her insulin this morning. Did check her blood sugar and it was in the 200s. She denied falling. Per EMS her coworkers reported to questionable syncopal episodes with minimal loss of consciousness. Patient denies any weakness she does states that her arms and legs feel heavy. TRAVEL OUTSIDE OF THE [place] IN LAST 30 DAYS: No - Related Data Allergies/Adverse Reactions: No Known Allergies Allergy (Verified 01/12/19 15:11) Past Medical History - General Information source: Patient - Social History Smoking Status: Never Smoker Frequency of alcohol use: None Drug Abuse: None Family History: Reviewed & Not Pertinent - Past Medical History Cardiac Medical History: Denies: Hx Coronary Artery Disease, Hx Heart Attack, Hx Hypertension Pulmonary Medical History: Reports: Hx Asthma - chilhood, Hx Bronchitis, Hx Tuberculosis Denies: Hx COPD, Hx Pneumonia Neurological Medical History: Reports: Hx Seizures - ONLY IF HYPOGLYCEMIC. Denies: Hx Cerebrovascular Accident Endocrine Medical History: Reports: Hx Diabetes Mellitus Type 1, Hx Hyperthyroidism, Hx Hypothyroidism Renal/ Medical History: Denies: Hx Peritoneal Dialysis Psychiatric Medical History: Denies: Hx Depression Traumatic Medical History: Reports: Hx Fractures Past Surgical History: Denies: Hx Pacemaker - Immunizations Hx Diphtheria, Pertussis, Tetanus Vaccination: No - 08/10/12 Review of Systems - Review of Systems Constitutional: Weakness EENT: No symptoms reported Cardiovascular: No symptoms reported Respiratory: No symptoms reported Musculoskeletal: No symptoms reported Skin: No symptoms reported Neurological/Psychological: Weakness, Other - bilateral upper and lower extremity "heaviness" -: Yes All other systems reviewed and negative Physical Exam - Vital signs Vitals: Temp 98.7 F 10/15/19 08:11 - General General appearance: Appears well, Alert In distress: Mild - HEENT Head: Normocephalic, Atraumatic Eyes: Normal Pupils: PERRL - Respiratory Respiratory status: No respiratory distress Chest status: Nontender Breath sounds: Normal Chest palpation: Normal - Cardiovascular Rhythm: Regular Heart sounds: Normal auscultation Murmur: No - Back Back: Normal, Nontender. No: CVA tenderness - Extremities General upper extremity: Normal inspection, Nontender, Normal color, Normal temperature General lower extremity: Normal inspection, Nontender, Normal color, Normal ROM, Normal temperature. No: Sonia's sign Notes: Patient is able to lift her arms with minimal difficulty. She has some mild finger contractures but has good wringer operator strength bilaterally. Sensation intact. - Neurological Neuro grossly intact: Yes Cognition: Normal Orientation: AAOx4 [place] Coma Scale Eye Opening: Spontaneous [place] Coma Scale Verbal: Oriented [place] Coma Scale Motor: Obeys Commands [place] Coma Scale Total: 15 Speech: Normal Motor strength normal: LUE, RUE, LLE, RLE Additional motor exam normals: Equal wringer operator Sensory: Normal - Skin Skin Temperature: Warm Skin Moisture: Dry Skin Color: Normal Course - Re-evaluation Re-evalutation: 10/15/19 10:44 Patient is currently resting comfortably she is asymptomatic. States all her symptoms have resolved. She has full range of motion of all of her extremities. Ambulatory with a steady gait. Neurologically and neurovascularly intact. No longer feels any heaviness to her extremities. All test results were reviewed with the patient. Case was staffed with the ED physician Dr. Hannon patient was counseled need to follow-up outpatient with a neurologist. We have been provided with a local neurologist for follow-up. Patient was given strict return to the emergency room guidance. Return for any new or worsening symptoms. All questions were answered. Patient verbalized understanding agrees with plan of care. 10/15/19 10:48 - Vital Signs Vital signs: Temp Pulse Resp BP Pulse Ox 98.7 F 19 111/73 100 10/15/19 08:24 10/15/19 10:31 10/15/19 10:31 10/15/19 10:31 - Laboratory Result Diagrams: 10/15/19 08:53 10/15/19 08:53 Laboratory results interpreted by me: 10/15/19 10/15/19 10/15/19 08:53 08:53 09:42 RBC 3.67 L Hgb 9.7 L Hct 29.5 L MCH 26.3 L RDW 18.4 H Lymph % (Auto) 11.7 L Seg Neutrophils % 83.7 H Sodium 135.4 L Glucose 317 H Calcium 8.2 L Urine Glucose (UA) 500 H Urine Ketones 100 H Ur Leukocyte Esterase TRACE H - Diagnostic Test Radiology reviewed: Reports reviewed - EKG Interpretation by Me Additional EKG results interpreted by me: 10/15/19 10:43 EKG was interpreted by ER physician Dr. Campuzano Discharge - Discharge Clinical Impression: Hyperventilation Syncope Qualifiers: Syncope type: unspecified Qualified Code(s): R55 - Syncope and collapse Condition: Stable Disposition: HOME, SELF-CARE Instructions: Syncopal Episode ([facility]), Hyperventilation ([facility]) Additional Instructions: Rest for today. Outpatient follow-up with neurology as discussed. Return for any new or worsening symptoms. Referrals: CLARI RAWLS MD [ACTIVE STAFF] - Follow up as needed BARBARA YOO MD [NO LOCAL MD] - Follow up in 3-5 days (Call for an outpatient follow-up appointment.)
[2019-10-15] MEDS ORDERED: RINGERS SOLUTION,LACTATED 1,000 ML IV PRN (08:59)
[2019-10-15 09:29] LABS: ABSOLUTE EOSINOPHILS # (AUTO) 0.1 10^3/uL (0.0-0.6); ABSOLUTE LYMPHOCYTES (AUTO) 0.9 10^3/uL (0.5-4.7); ABSOLUTE MONOCYTES (AUTO) 0.2 10^3/uL (0.1-1.4); ABSOLUTE NEUT (AUTO) 6.2 10^3/uL (1.7-8.2); BASOPHILS % (AUTO) 0.6 % (0-2); EOSINOPHILS % (AUTO) 0.9 % (0-6); HEMATOCRIT 29.5 % (36.0-47.0); HEMOGLOBIN 9.7 g/dL (12.0-15.5); LYMPHOCYTES % (AUTO) 11.7 % (13-45); MEAN CORPUSCULAR HEMOGLOBIN 26.3 pg (27.0-33.4); MEAN CORPUSCULAR HGB CONC 32.7 g/dL (32.0-36.0); MEAN CORPUSCULAR VOLUME 80 fl (80-97); MONOCYTES % (AUTO) 3.1 % (3-13); PLATELET COUNT 253 10^3/uL (150-450); RED BLOOD COUNT 3.67 10^6/uL (3.72-5.28); RED CELL DISTRIBUTION WIDTH 18.4 % (11.5-14.0); SEGMENTED NEUTROPHILS % (AUTO) 83.7 % (42-78); TOTAL CELLS COUNTED % (AUTO) 100 %; WHITE BLOOD COUNT 7.4 10^3/uL (4.0-10.5)
[2019-10-15 09:32] LABS: ALBUMIN 3.9 g/dL (3.5-5.0); ALKALINE PHOSPHATASE 79 U/L (38-126); ANION GAP 7 (5-19); ASPARTATE AMINO TRANSFERASE 34 U/L (14-36); BILIRUBIN,TOTAL 0.6 mg/dL (0.2-1.3); BLOOD UREA NITROGEN 17 mg/dL (7-20); CALCIUM 8.2 mg/dL (8.4-10.2); CARBON DIOXIDE 25 mmol/L (22-30); CHLORIDE 103 mmol/L (98-107); GLUCOSE 317 mg/dL (75-110); POTASSIUM 4.1 mmol/L (3.6-5.0); TOTAL PROTEIN 6.5 g/dL (6.3-8.2)
--- NOTE | 2019-10-15 10:04 | RADIOLOGY REPORT (SQ) ---
EXAM DESCRIPTION: CT HEAD WITHOUT IMAGES COMPLETED DATE/TIME: 10/15/2019 9:50 am REASON FOR STUDY: dizziness COMPARISON: None. TECHNIQUE: Axial images acquired through the brain without intravenous contrast. Images reviewed wi th bone, brain and subdural windows. Additional sagittal and coronal reconstructions were generated. Images stored on PACS. All CT scanners at this facility use dose modulation, iterative reconstruction, and/or weight based d osing when appropriate to reduce radiation dose to as low as reasonably achievable (ALARA). [facility]: Dose Right [facility]: CareDose [facility]: Dose Right [facility]: Teradose 4D [facility]: SwitchForce RADIATION DOSE: CT Rad equipment meets quality standard of care and radiation dose reduction techniq ues were employed. CTDIvol: 53.2 mGy. DLP: 964 mGy-cm. mGy. LIMITATIONS: None. FINDINGS: VENTRICLES: Normal size and contour. CEREBRUM: No masses. No hemorrhage. No midline shift. No evidence for acute infarction. Normal gra y/white matter differentiation. No areas of low density in the white matter. CEREBELLUM: No masses. No hemorrhage. No alteration of density. No evidence for acute infarction. EXTRAAXIAL SPACES: No fluid collections. No masses. ORBITS AND GLOBE: No intra- or extraconal masses. Normal contour of globe without masses. CALVARIUM: No fracture. PARANASAL SINUSES: No fluid or mucosal thickening. SOFT TISSUES: No mass or hematoma. OTHER: No other significant finding. IMPRESSION: NORMAL BRAIN CT WITHOUT CONTRAST. EVIDENCE OF ACUTE STROKE: NO. COMMENT: Quality ID # [id number]: Final reports with documentation of one or more dose reduction techniques (e.g., Automated exposure control, adjustment of the mA and/or kV according to patient size, use of iterative reconstruction technique) TECHNICAL DOCUMENTATION: JOB ID: [id number] 2010 [email or web address]- All Rights Reserved Reading location - IP/workstation name: [email or web address]
--- NOTE | 2019-10-15 10:10 | RADIOLOGY REPORT (SQ) ---
EXAM DESCRIPTION: CHEST 2 VIEWS IMAGES COMPLETED DATE/TIME: 10/15/2019 9:58 am REASON FOR STUDY: dizziness COMPARISON: 08/27/2018. EXAM PARAMETERS: NUMBER OF VIEWS: two views TECHNIQUE: Digital Frontal and Lateral radiographic views of the chest acquired. RADIATION DOSE: NA LIMITATIONS: none FINDINGS: LUNGS AND PLEURA: No opacities, masses or pneumothorax. No pleural effusion. MEDIASTINUM AND HILAR STRUCTURES: No masses or contour abnormalities. HEART AND VASCULAR STRUCTURES: Heart normal size. No evidence for failure. BONES: No acute findings. HARDWARE: None in the chest. OTHER: No other significant finding. IMPRESSION: NO ACUTE RADIOGRAPHIC FINDING IN THE CHEST. TECHNICAL DOCUMENTATION: JOB ID: [id number] 2010 [facility]- All Rights Reserved Reading location - IP/workstation name: [email or web address]
[2019-10-15 10:19] LABS: URINE AMPHETAMINES SCREEN NEGATIVE; URINE BARBITURATES SCREEN NEGATIVE; URINE BENZODIAZEPINES SCREEN NEGATIVE; URINE COCAINE SCREEN NEGATIVE; URINE MARIJUANA (THC) SCREEN NEGATIVE; URINE METHADONE SCREEN NEGATIVE; URINE PHENCYCLIDINE SCREEN NEGATIVE
[2019-10-15 10:30] LABS: ADD MANUAL MICROSCOPIC YES; APPEARANCE,URINE CLEAR; BILIRUBIN,URINE NEGATIVE (NEGATIVE); COLOR,URINE YELLOW; GLUCOSE, URINE 500 mg/dL (NEGATIVE); KETONES,URINE 100 mg/dL (NEGATIVE); LEUKOCYTE ESTERASE,URINE TRACE (NEGATIVE); NITRITE,URINE NEGATIVE (NEGATIVE); PROTEIN,URINE NEGATIVE (NEGATIVE); URINE SPECIFIC GRAVITY 1.023; UROBILINOGEN,URINE NEGATIVE mg/dL (<2.0)
[2019-10-15 10:31] LABS: BACTERIA,URINE TRACE /HPF
[2019-10-15 11:15] VITALS: BP 106/65
--- NOTE | 2019-10-15 20:58 | EKG REPORT ---
SEVERITY:- BORDERLINE ECG - SINUS RHYTHM BORDERLINE PROLONGED QT INTERVAL : Confirmed by: Margot Trevizo MD 15-Oct-2019 20:57:10
== END 2019-10-15 11:15 | disposition home or self-care (01) ==
LOC: ER 08:10
DX: R55 Syncope and collapse (principal); R06.4 Hyperventilation; R53.1 Weakness; R20.2 Paresthesia of skin; M20.099 Other deformity of finger(s), unspecified finger(s); E11.9 Type 2 diabetes mellitus without complications; E03.9 Hypothyroidism, unspecified; J45.909 Unspecified asthma, uncomplicated
CPT/HCPCS: 93005; 99285; 96360; 36415; 82962; 84443; 84703; 85025; 80053; 81001; 80307; 71046; 70450; 93010; J7120

== ENCOUNTER → 2020-06-08 | Outpatient (CLI) | payer BC ==
--- NOTE | 2020-06-08 19:06 | RADIOLOGY REPORT (SQ) ---
EXAM DESCRIPTION: U/S EXTREMITY NONVASCULAR LTD IMAGES COMPLETED DATE/TIME: 06/08/2020 2:34 pm REASON FOR STUDY: (R22.42)LOCALIZED SWELLING, MASS AND LUMP, LEFT LOWER LIMB R22.42 LOCALIZED SWELL ING, MASS AND LUMP, LEFT LOWER LIMB COMPARISON: None. TECHNIQUE: Dynamic and static grayscale images acquired of the localized site of clinical concern an d recorded on PACS. Additional selected color Doppler and spectral images recorded. SITE OF CONCERN: Left distal anterior lower leg LIMITATIONS: None. FINDINGS: SOFT TISSUES: In the region of the palpable lump, there is a 1.1 x 0.4 x 0.6 cm structure which is predominantly isoechoic to adjacent fat with a thin hypoechoic rim. There is some posterior acoustic enhancement. No definite significant internal vascularity. There may be a small vessel im mediately adjacent to this structure. VASCULAR: No other abnormal vascularity. OTHER: No other significant finding. IMPRESSION: Small circumscribed structure in the region of the palpable lump in the anterior distal left leg which appears predominantly isoechoic to adjacent fat and could represent a small lipoma or prominent fat lobule. Sequela of fat necrosis is a consideration. Recommend continued clinical foll ow-up to confirm stability with repeat imaging suggested if there is significant clinical change. TECHNICAL DOCUMENTATION: JOB ID: [id number] 2010 [employer]- All Rights Reserved Reading location - IP/workstation name: [email or web address]
== END ==
LOC: RAD 17:17
PROVIDERS: ATTEND Family Medicine
DX: R22.42 Localized swelling, mass and lump, left lower limb (principal)
CPT/HCPCS: 76882